=== PATIENT | male | born 1945 | race Caucasian/White ===

== ENCOUNTER → 2017-08-20 | Outpatient (CLI) | payer MEDICARE, BC ==
[~2017-08-20] MED LIST: ASPIRIN 81MG TA81 MG PO; ATORVASTATIN CA10 MG PO; BYSTOLIC5 MG PO; CARAFATE 11 GM/10 ML PO; CLOPIDOGREL75 M2 PO; FUROSEMIDE40 MG PO; HYDROCORTISONE2.51 TP; HYDROCORTISONE25 MG RC; KAPIDEX60 MG PO; LORATADINE D PO; METOPROLOL SUCC50 M1 PO; NEXIUM40 MG PO; NITROSTAT0.4 MG SL; PANTOPRAZOLE SO40 MG PO; POTASSIUM CITR10 MEQ PO; PRAVACHOL40 MG PO; PREDNISONE 10MG10 MG PO; VISTARIL25 MG PO; XELODA500 MG PO; ZYLOPRIM 300MG300 MG PO
[2017-08-20 09:10] LABS: BUN 18 mg/dL (7-18)
[2017-08-20 09:14] LABS: GFR (ESTIMATED) 54 ML/MIN (>60)
[2017-08-20 09:34] LABS: LYMPH # 0.9 K/mm3 (0.7-4.5); LYMPH % 13.8 % (10-50)
--- NOTE | 2017-08-21 06:59 | RADIOLOGY REPORT PS360 ---
CTA-NECK INDICATION: Carotid artery disease, bilateral carotid stenosis left greater than right, abnormal carotid Doppler, carotid stenosis CAROTID STENOSIS ORDERING PHYSICIAN: SARAH BETH FLETCHER MD PATIENT AGE: 71 years TECHNIQUE: CT angiography performed following the intravenous administration 100 mL's of Isovue-[id number] followed by saline bolus COMPARISON: None TECHNIQUE: Axial images are obtained without contrast. Sagittal and coronal reformatted images are reviewed as well. FINDINGS: Image quality is somewhat degraded secondary to patient's body habitus. The innominate artery, common carotid, and left subclavian artery have an unremarkable appearance. Calcific plaque is present at the origin of the right vertebral artery with high-grade stenosis of the origin of the right vertebral. The right vertebral is dominant. The left vertebral artery is smaller than the right side but is patent without obvious stenosis. It is difficult to determine the exact degree of stenosis of the origin of the right vertebral artery but is felt to be greater than 75%. Stenosis may be as high as 90%. The common carotids have an unremarkable appearance. On the right there is calcific plaque at the origin of the left internal carotid artery with 50% stenosis at the ostium of the right internal carotid. On the left there is extensive plaque in the proximal left ICA with 90 % stenosis of the ICA at this region. Nonvascular findings: Prior median sternotomy. IMPRESSION: 1. 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 The stenosis is at least 75 and possibly up to 90%. Left vertebral is smaller but has an unremarkable appearance. 2. Severe stenosis of the left ICA due to calcific plaque of approximately 90 %. 3. Moderate stenosis of the right ICA of 50%
== END ==
LOC: RAD 08:38
PROVIDERS: Internal Medicine
DX: I65.23 Occlusion and stenosis of bilateral carotid arteries (principal); C18.9 Malignant neoplasm of colon, unspecified
CPT/HCPCS: Q9967

== ENCOUNTER → 2017-08-22 | Outpatient (CLI) | payer MEDICARE, BC ==
--- NOTE | 2017-08-22 13:46 | RADIOLOGY REPORT PS360 ---
CHEST(2 VIEWS-NOT PORTABLE) HISTORY: ACUTE RESPINFECTION ORDERING PHYSICIAN: Rob Smith MD PATIENT AGE: 71 years COMPARISON: 09/19/2008 FINDINGS: There has been a prior median sternotomy with CABG. Fracture involves the superior most median sternotomy wire. Borderline cardiomegaly without failure. Pericardial fat pad noted on the left. The lungs are clear. No acute bony anomalies.. IMPRESSION: Prior CABG, no acute finding
== END ==
LOC: RAD 13:01
DX: J06.9 Acute upper respiratory infection, unspecified (principal)